=== PATIENT | female | born 2000 | race Caucasian/White ===

== ENCOUNTER 2024-01-22 10:41 | Emergency (ER) | payer OTHER ==
[~2024-01-22] VITALS: Ht 170.2 cm; Wt 69.2 kg
[2024-01-22] MEDS ORDERED: LEXA1TAB PO (10:50)
[2024-01-22 12:38] LABS: HCG, SERUM QUALITATIVE NEGATIVE (NEGATIVE)
[2024-01-22 12:51] LABS: BASO # 0.1 10^3/uL (0.0-0.2); BASO % 0.4 % (0.0-1.0); EOS # 0.1 10^3/uL (0.0-0.5); EOS % 0.4 % (0.0-3.0); HEMOGLOBIN 12.5 g/dl (12.0-15.5); LYMPH # 1.3 10^3/uL (1.5-5.0); LYMPH % 11.7 % (24.0-44.0); MEAN CORPUSCULAR HEMOGLOBIN 29.5 pg (27.0-33.0); MEAN CORPUSCULAR HGB CONC 32.9 g/dl (32.0-36.5); MEAN CORPUSCULAR VOLUME 89.6 fl (80.0-96.0); MONO # 0.4 10^3/uL (0.0-0.8); MONO % 3.9 % (2.0-8.0); NEUTROPHILS # 9.3 10^3/uL (1.5-8.5); NEUTROPHILS % 83.3 % (36.0-66.0); PLATELET COUNT, AUTOMATED 251 10^3/uL (150-450); RED BLOOD COUNT 4.24 10^6/uL (4.00-5.40); WHITE BLOOD COUNT 11.1 10^3/uL (4.0-10.0)
[2024-01-22 12:59] LABS: BLOOD UREA NITROGEN 12 MG/DL (9-23); CALCIUM LEVEL 8.8 MG/DL (8.5-10.1); CARBON DIOXIDE LEVEL 26 MMOL/L (20-31); CHLORIDE LEVEL 107 MMOL/L (98-107); CREATININE FOR GFR 0.64 MG/DL (0.55-1.30); GLOMERULAR FILTRATION RATE > 60.0 (>60); GLUCOSE, FASTING 85 MG/DL (60-100); POTASSIUM SERUM 4.1 MMOL/L (3.5-5.1); SODIUM LEVEL 137 MMOL/L (136-145)
[2024-01-22 13:10] LABS: ERYTHROCYTE SEDIMENTATION RATE 15 mm/hr (0-20)
[2024-01-22] MEDS: KETOROLAC 30 MG/ML 1ML VIAL IV ONE (13:30)
[2024-01-22] MEDS: ACETAMINOPHEN TAB 650MG DOSE (2X325MG) PO ONE (13:30)
[2024-01-22] MEDS: METOCLOPRAMIDE INJ 10MG/2ML VIAL IV ONE (13:30)
[2024-01-22] MEDS: NS 1,000 ML IV ONE (13:31)
[2024-01-22] MEDS ORDERED: KETO10TAB PO (14:35)
[2024-01-22 14:47] VITALS: BP 108/61; TEMP 97.5; O2SAT 100
== END 2024-01-22 15:19 | disposition home or self-care (01) ==
LOC: M ED 10:41
DX: G44.52 New daily persistent headache (NDPH) (principal); F41.9 Anxiety disorder, unspecified; F32.A Depression, unspecified; Z79.899 Other long term (current) drug therapy
CPT/HCPCS: 70450; 80048; 84703; 85025; 85652; 96361; 96374; 99283; J1885; J2765